=== PATIENT | male | born 1990 | race Caucasian/White ===

== ENCOUNTER 2023-08-14 08:57 | Outpatient (CLI) | payer BC, SELFPAY ==
[2023-08-26 16:46] VITALS: BMI 25.0
--- NOTE | 2023-08-26 16:46 | WPDHOMESLEEP ---
Sleep Study - Home Unattended Date of Study: 08/14/23 Ordering Provider: Bi Dill MD Interpreting Provider: Patti Santiago, DO Home Sleep Study Type: Watch PAT Height: 1.85 m Weight: 86.183 kg Body Mass Index: 25.0 Neck Circumference (inches): 15 [place]: 14 Reason for Sleep Study Unrefreshing sleep Sleep History The patient is a 32-year-old male with history of tobacco use that had a sleep study ordered by his primary care physician for evaluation of sleep apnea. He rarely awakens from sleep short of breath. He denies awakening at night with heartburn, belching or cough. He frequently snores and is frequently loud enough that others complain. He frequently has trouble sleeping when he has a cold. He rarely wakes up gasping for air throughout the night. He occasionally has breathing problems at night observed by himself or others. He frequently sweats excessively at night. He occasionally falls asleep during the day but never while driving. He denies cataplexy. He frequently has trouble at school or work due to sleepiness. He occasionally feels unable to move while waking up or falling asleep. He rarely experiences vivid dreamlike scenes upon awakening or falling asleep. He denies feeling afraid of going to sleep. He rarely has nightmares rarely remembers his dreams. He frequently has thoughts racing through his mind. He rarely feels sad or depressed. He occasionally has anxiety. He frequently has muscular tension. He rarely notices parts of his body jerk. He denies kicking during the night. He rarely has crawling and aching feelings in his legs but occasionally has leg pain during the night. He constantly grinds his teeth during sleep and occasionally awakens with morning jaw pain. He occasionally is bothered by pain during the day but rarely awakened by pain during the night. He frequently wakes up feeling stiff in the morning. He frequently wakes up with sore or achy muscles. He frequently wakes up with pain in the neck, spine and other joints. He goes to bed between 11:00 p.m. to 12:00 a.m. on both weekdays and weekends. It takes him 10-15 minutes to fall asleep. He wakes up once throughout the night at most for unknown reasons but is able to fall back asleep within a few minutes. He wakes up at 8:00 a.m. on weekdays and between 9-10 a.m. on the weekends. He typically gets 5-8 hours of sleep per night. He currently lives with his . He denies consuming any caffeinated beverages within 2 hours of bedtime. He denies engaging in physical exercise before bedtime. He will read before falling asleep. He denies taking naps in afternoon or the evening. He is a former smoker. He denies consuming any caffeinated beverages throughout the day. He denies alcohol and recreational drug use. [facility] Past Medical History Medical History Broken finger Collar bone fracture Seasonal allergies Surgical History Surgical History History of appendectomy Social History Social History Social History: caffeine-none Years smoked: 15 Smoking status: Former smoker Smoking end date: 05/05/20 Alcohol intake: current Drinks per week: 2 Substance use: current Substance use type: marijuana Do You Feel Safe in your Home?: Yes Lack of Transportation: No Lack of Food: Never True Current Housing: I Have Housing Difficulty Paying Gas/Electric Bills: No Difficulty Paying for Meds: No Currently Unemployed: No Education: High School Diploma/GED Difficulty w/ Childcare or Family Care: No Living arrangements: with family Additional living arrangements comments: spouse Occupation/Education: occupation Gender identity (if verbalized by the patient): Male Sexual Orientation (if Verbalized by the Patient): Straight or Hete
== END 2023-08-19 11:48 | disposition home or self-care (01) ==
PROVIDERS: PCP Emergency Medicine; Visit Provider Emergency Medicine
DX: G47.33 Obstructive sleep apnea (adult) (pediatric) (principal)
CPT/HCPCS: 95800

== ENCOUNTER 2024-12-05 09:34 | Emergency (ER) | payer BC, SELFPAY ==
[2024-12-05 09:40] VITALS: BP 139/89; PULSE 72; RESP 16; TEMP 36.5; O2SAT 98
--- NOTE | 2024-12-05 09:49 | ED.EYEPROB ---
HPI - Eye Problem General Chief complaint: Eye Problems Stated complaint: Eye Irritation Time Seen by Provider: 12/05/24 09:45 Source: patient and RN notes reviewed Mode of arrival: ambulatory Limitations: no limitations History of Present Illness HPI Narrative: Patient presents today complaining of bilateral eye redness, irritation, watering since yesterday with crustiness when he woke up this morning. Yesterday he was using a weed halima and leaf blower and believes he may have something in both eyes, but denies any current foreign body sensation. He has been flushing with lubricating eyedrops without improvement. Denies vision changes at this time. He does not wear glasses or contacts. Related Data Home Medications ?Medication ?Instructions ?Recorded ?Confirmed ?Last Taken ?Type clonazepam 0.5 mg tablet mg 12/05/24 Unknown History sertraline 100 mg tablet mg 12/05/24 Unknown History Allergies Allergy/AdvReac Type Severity Reaction Status Date / Time amoxicillin (From Augmentin) Allergy Intermediate Causes Verified 12/05/24 09:40 sinus infection acetaminophen (From Percocet) AdvReac Severe Vomiting Verified 12/05/24 09:40 oxycodone (From Percocet) AdvReac Severe Vomiting Verified 12/05/24 09:40 PMFSH Past Medical History Medical History Generalized anxiety disorder Seasonal allergies Broken finger Collar bone fracture Surgical History Surgical History History of appendectomy Social History Social History Social History: caffeine-none Years smoked: 15 Smoking status: Former smoker Smoking end date: 05/05/20 Alcohol intake: current Drinks per week: 2 Substance use: current Substance use type: marijuana Do You Feel Safe in your Home?: Yes Lack of Transportation: No Lack of Food: Never True Current Housing: I Have Housing Difficulty Paying Gas/Electric Bills: No Difficulty Paying for Meds: No Currently Unemployed: No Education: High School Diploma/GED Difficulty w/ Childcare or Family Care: No Living arrangements: with family Additional living arrangements comments: spouse Occupation/Education: occupation Gender identity (if verbalized by the patient): Male Sexual Orientation (if Verbalized by the Patient): Straight or Heterosexual Spiritual care concerns: No Agree to blood products: No Comments At time of signature, I have reviewed and agree with nursing past medical, surgical, social and family history unless otherwise noted. Please see nursing chart for further information. There is no relevant family history pertinent to the presenting complaint Exam Narrative: GENERAL: Well-appearing, well-nourished, and in no acute distress. HEAD: Normocephalic, atraumatic. EYES: EOMI.PERRL. Bilateral injected conjunctiva with chemosis. Lids and lashes normal. See procedure note. ENT: Mucous membranes pink and moist. NECK: Normal AROM. CHEST: No respiratory distress. Clear to auscultation. HEART: Regular rate and rhythm. No murmur appreciated. EXTREMITIES: Normal range of motion. No edema. SKIN: Warm, dry, no rash. Capillary refill normal. Normal skin turgor. NEURO: No focal deficits. Alert and oriented x3. Gait steady. PSYCH: Normal affect. No signs of depression or anxiety. Course Course Level of Care: Express Care Visit Vital Signs Vital signs: Vital Signs Temperature 97.7 F 12/05/24 09:40 Pulse Rate 72 12/05/24 09:40 Respiratory Rate 16 12/05/24 09:40 Blood Pressure 139/89 12/05/24 09:40 Pulse Oximetry 98 12/05/24 09:40 Temperature 97.7 F 12/05/24 09:40 Pulse Rate 72 12/05/24 09:40 Respiratory Rate 16 12/05/24 09:40 Blood Pressure 139/89 12/05/24 09:40 Pulse Oximetry 98 12/05/24 09:40 Reviewed Procedures Other Procedure Procedure 1: Other Procedure: Bilateral eyes were anesthetized with 1 drop of tetracaine and anesthesia was achieved. The eye was flushed with eye wash. Lid was inverted and examined. Moistened Qtip was used to sweep underneath the upper eyelid with 0 foreign bodies resulting. Cornea was dyed with fluorescein and no abrasions or ulcerations were noted. Pt tolerated procedure well. MDM - Eye Problem MDM Narrative Medical decision making narrative: 34-year-old male patient presents today with red, irritated, and watery eyes after doing some yd work, weedeating, and using a leaf blower yesterday. Woke up this morning with crustiness bilaterally. Denies any current foreign body sensation. Wears no glasses. Wood's lamp exam is negative for fluorescein uptake. Physical exam shows bilateral eye redness, watering, and chemosis. Will put patient on some Polytrim for the next 3 days to ensure there is no bacterial infection, but otherwise should be using an antihistamine drops to help with the irritation. Vital signs stable. Recommend follow-up with instructor psychiatric aide next week if symptoms are not improving. Patient agrees with plan. Anticipatory guidance given. Differential Diagnosis Differential diagnosis: Likely corneal abrasion, conjunctivitis and corneal ulcer Critical Care Time Critical Care Time Critical Care Time: No Discharge Plan Discharge Clinical Impression: Conjunctivitis Qualifiers: Conjunctivitis type: acute Acute conjunctivitis type: unspecified Laterality: bilateral Qualified Code(s): H10.33 - Unspecified acute conjunctivitis, bilateral Patient Disposition: Home Condition: Stable Instructions: Conjunctivitis (ED) Additional Instructions: Your eye exam did not show an abrasion or ulceration on your cornea or any foreign bodies. Please use the antibiotic drops for a few days just to ensure any bacterial infection has resolved. The redness and swelling is likely due to irritation. Please start an antihistamine eyedrop such as Zaditor to help with symptoms. Follow up with an eyedoctor in 1 week if symptoms are not improving. Your blood pressure was elevated above 120/80 today at Urgent Care. This puts you above the threshold for follow up. Please schedule a followup visit with your personal physician as soon as possible, for further evaluation and treatment. Even blood pressure exceeding 120/80 may indicate pre-hypertension. Patient Language: Fijian Prescriptions: New polymyxin B sulf-trimethoprim 10,000 unit- 1 mg/mL drops 1 drp EACH EYE QID 3 Days Qty: 10 0RF No Action clonazepam 0.5 mg tablet sertraline 100 mg tablet Follow-up/Referrals: Garland Sargent DO [Primary Care Provider] - Time of Disposition: 10:03
== END 2024-12-05 10:04 | disposition home or self-care (01) ==
PROVIDERS: Emergency Provider Nurse Practitioner; PCP Internal Medicine
DX: H10.33 Unspecified acute conjunctivitis, bilateral (principal); F12.90 Cannabis use, unspecified, uncomplicated; F41.1 Generalized anxiety disorder; Z87.891 Personal history of nicotine dependence
CPT/HCPCS: 99213; A9270; G0463

== ENCOUNTER 2025-02-17 09:15 | Emergency (ER) | payer BC, SELFPAY ==
--- NOTE | ~2025-02-17 | XR_ITS ---
EXAMINATION: XR ankle LT min 3V, 02/17/2025 9:33 CDT HISTORY: medial pain and swelling, hit with flying rock x 2 days ago COMPARISON: No comparisons available. Findings: No acute fracture or malalignment. No significant degenerative changes. Soft tissues unremarkable. Impression: No acute fracture or malalignment. Reviewed, dictated and finalized at location P. Impression: No acute fracture or malalignment.
--- NOTE | 2025-02-17 09:18 | ED_ITS ---
HPI - Extremity Injury (Lower) General Chief Complaint: Extremity Injury, Lower Stated Complaint: L FOOT/ANKLE INJURY Time Seen by Provider: 02/17/25 09:24 Source: patient, RN notes reviewed and old records reviewed Mode of arrival: ambulatory Limitations: no limitations History of Present Illness HPI Narrative: 34-year-old male presents to the [facility] with bruising and swelling to the left medial ankle and foot. States that he was mowing the grass on Friday, 2 days ago when he was hit in the ankle medial anterior with a rock. Walks with a normal gait. Bruising has moved from the ankle to the heel. Walks with a normal gait. Positive pedal pulse. Sensation intact. Tenderness to the medial aspect of the ankle and foot Onset (ago): day(s) (2) Treatments prior to arrival: cold therapy and NSAIDS Related Data Home Medications ?Medication ?Instructions ?Recorded ?Confirmed ?Last Taken ?Type clonazepam 0.5 mg tablet mg 12/05/24 Unknown History sertraline 100 mg tablet mg 12/05/24 Unknown History Allergies Allergy/AdvReac Type Severity Reaction Status Date / Time amoxicillin (From Augmentin) Allergy Intermediate Causes Verified 02/17/25 09:30 sinus infection acetaminophen (From Percocet) AdvReac Severe Vomiting Verified 02/17/25 09:30 oxycodone (From Percocet) AdvReac Severe Vomiting Verified 02/17/25 09:30 Review of Systems 2 Review of Systems: All systems reviewed & are unremarkable except as noted in HPI and below Constitutional: Constitutional: Reports no additional constitutional complaints Musculoskeletal: Musculoskeletal: Reports as per HPI and Reports joint swelling Integumentary/Breasts: Skin/Breast: Reports as per HPI, Reports swelling and Denies wounds PMFSH Past Medical History Medical History Generalized anxiety disorder Seasonal allergies Broken finger Collar bone fracture Surgical History Surgical History History of appendectomy Social History Social History Social History: caffeine-none Years smoked: 15 Smoking status: Former smoker Smoking end date: 05/05/20 Alcohol intake: current Drinks per week: 2 Substance use: current Substance use type: marijuana Do You Feel Safe in your Home?: Yes Lack of Transportation: No Lack of Food: Never True Current Housing: I Have Housing Difficulty Paying Gas/Electric Bills: No Difficulty Paying for Meds: No Currently Unemployed: No Education: High School Diploma/GED Difficulty w/ Childcare or Family Care: No Living arrangements: with family Additional living arrangements comments: spouse Occupation/Education: occupation Gender identity (if verbalized by the patient): Male Sexual Orientation (if Verbalized by the Patient): Straight or Heterosexual Spiritual care concerns: No Agree to blood products: No Comments At the time of my signature, I reviewed and agree with the nursing past medical, surgical, social, and family history. There is no relevant family history pertinent to the patient complaint. Exam 2 Const: General: cooperative, healthy appearing, comfortable, no acute distress, well developed, alert and well nourished Nutritional Appearance: w ell nourished Orientation/consciousness: patient oriented x3 Limitations: no limitations HENMT: Head: normal to inspection Eyes: General: appearance normal, both eyes and all related structures A lignment and Position: alignment normal Neck: Neck: normal visual inspection, full ROM, no lymphadenopathy and no meningeal signs Chest: Chest palpation & inspection: normal inspection of the chest Resp: Effort & Inspection: normal respiratory effort and able to speak in complete sentences Cardio: Rate: regular rate Skin: General skin exam: normal color and no rashes or lesions noted Neuro: General: patient oriented x3, gait normal, moves all extremities and no meningeal signs Cognition (Neuro): normal cognition Speech: normal speech Gait exam (Neuro): Normal gait present Extrem: General: normal to inspection, full ROM, capillary refill normal and normal gait Left lower extremity: full ROM, normal capillary refill, ankle Details: tenderness Location: of the medial malleolus, swelling Details: medially, normal ROM and ecchymosis and foot Details: normal capillary refill and tenderness Location: of the medial foot Location: proximally Ankle/foot/toe images: 1. Regional bruising, surrounding swelling 2. Ecchymosis, swelling Psych: Appearance: grossly normal and well kempt Mental Status: mental status grossly normal Speech and movement: Normal speech and movement present and Clear speech present Affect: normal affect Attitude: cooperative Course Course Level of Care: Express Care Visit Vital Signs Vital signs: Vital Signs Temperature 97.6 F 10/16/25 09:24 Pulse Rate 69 02/17/25 09:24 Respiratory Rate 16 02/17/25 09:24 Blood Pressure 123/77 02/17/25 09:24 Pulse Oximetry 99 02/17/25 09:24 Temperature 97.6 F 02/17/25 09:24 Pulse Rate 69 02/17/25 09:24 Respiratory Rate 16 02/17/25 09:24 Blood Pressure 123/77 02/17/25 09:24 Pulse Oximetry 99 02/17/25 09:24 Reviewed MDM - Extremity Injury (Lower) MDM Narrative Medical decision making narrative: Patient sitting comfortably in exam room. Patient is nontoxic, vitals stable. Patient presents with bruising and swelling to the medial left ankle. X-ray is negative. Discussed that bruising can follow gravity, can pool at the foot. Patient verbalized understanding. Discussed with patient a [id number] products, brace. Patient is appropriate for outpatient treatment with follow-up Discharge instructions reviewed with patient, as well as provided in writing per nursing staff. The instructions also include specific and strict return/GO TO THE ER as well as f/u information. All questions have been answered, and the patient deny any further questions with discharge and discharge plan. Some parts of this dictation were generated by voice recognition software and may contain typographical and/or grammatical inaccuracies. Differential Diagnosis Differential diagnosis: Likely ankle sprain and strain, ankle fracture and other (Fracture, contusion) Imaging Data Radiologist's impression: EXAMINATION: XR ankle LT min 3V, 02/17/2025 9:33 CDT HISTORY: medial pain and swelling, hit with flying rock x 2 days ago COMPARISON: No comparisons available. Findings: No acute fracture or malalignment. No significant degenerative changes. Soft tissues unremarkable. Impression: No acute fracture or malalignment. Critical Care Time Critical Care Time Critical Care Time: No Discharge Plan Discharge Clinical Impression: Contusion of ankle or foot, left Patient Disposition: Home Condition: Stable Instructions: Contusion in Adults (ED) Additional Instructions: Your Xray did not show a fracture. Wear good supportive shoes at all times. Ice should be applied to help reduce swelling. It can be used for 20 to 30 minutes, every 2-3 hours while awake. Do not apply ice directly to your skin. ankle braces or joshua-wraps will help support your injured ankle. You can alternate ibuprofen 600mg and Tylenol 650mg every 4 hours as needed for pain Please schedule a follow-up visit with your personal physician for further evaluation and treatment within 2 weeks especially if symptoms persist. For new or worsening symptoms go directly to the emergency room Patient Language: Thai Prescriptions: No Action clonazepam 0.5 mg tablet sertraline 100 mg tablet Follow-up/Referrals: Garland Sargent, [Primary Care Provider, Internal Medicine] - 2 Weeks Stand Alone Forms: Work/School Release IP Time of Disposition: 09:44
[2025-02-17 09:24] VITALS: BP 123/77; PULSE 69; RESP 16; TEMP 36.4; O2SAT 99
== END 2025-02-17 09:48 | disposition home or self-care (01) ==
PROVIDERS: Emergency Provider Nurse Practitioner; PCP Internal Medicine
DX: S90.02XA Contusion of left ankle, initial encounter (principal); Z87.891 Personal history of nicotine dependence
CPT/HCPCS: 73610; 99213; G0463